=== PATIENT | female | born 2000 | race Caucasian/White ===

== ENCOUNTER 2024-04-17 09:32 | Emergency (ER) | payer OTHER, SELFPAY ==
[2024-04-17 09:40] VITALS: BP 130/77
--- NOTE | 2024-04-17 11:12 | ED.GENMED ---
History of Present Illness
General
Chief Complaint: Abdominal Pain
Source: patient
Time Seen by Provider: 04/17/24 10:38
History of Present Illness
History of Present Illness:
23yoF with a history of anxiety presenting with her mother for evaluation of abdominal pain. Patient started with suprapubic/pelvic pain about 2 days ago. She states it feels like she is being stabbed with a knife. She also reports nausea and has
been having trouble tolerating solids. She has been taking Tylenol without relief. Patient also reports vaginal discharge with a fishy odor. Her IUD expires later this year and she is wondering if her pain is related to her IUD. She denies any
fevers, dysuria, diarrhea. She is a virgin and denies concern for STDs. No previous abdominal surgeries.
Phy Exam
General Physical Exam
General Presentation: well appearing and no apparent distress
General age: appears stated age
General Skin: warm and dry
General Habitus: normal
General Mental: alert
Cardiovascular Exam
Cardiovascular Exam: regular rate/rhythm and no edema
Pulmonary Exam
Pulmonary Exam: lungs clear, no respiratory distress, no crackles and no wheezing
Gastrointestinal Exam
Gastrointestinal Exam: soft, non distended and tender (Moderate generalized tenderness, worse in suprapubic region. No rebound or guarding. )
Palpation: generalized: Moderate tenderness
Skin Exam
Skin Exam: normal color and warm/dry
Psychiatric Exam
Psychiatric Exam: normal mood/affect
Course
Orders/Labs/Results
Orders:
Orders
04/17/24 09:42
US Pelvis W Transvag Combined Urgent
Reason For Exam: pelvic cramping, IUD in place
04/17/24 11:11
0.9% Sodium Chloride 1000 ml [Nss] 1,000 ml IV BOLUS
Ketorolac [Toradol] 15 mg IV NOW STA
Prochlorperazine [Compazine] 5 mg IV NOW STA
Test Result ONCE
04/17/24 11:18
Complete Blood Count/With Diff Urgent
Comprehensive Metabolic Panel Urgent
Lipase Urgent
04/17/24 11:19
HCG, Urine Qualitative Screen Urgent
Date Specimen was Collected: 04/17/24
Time Specimen was Collected: 11:18
Urinalysis Reflex To Culture Urgent
Date Specimen was Collected: 04/17/24
Time Specimen was Collected: 11:18
04/17/24 12:11
CT Abd/pel W Iv And Oral Contr Urgent
Comment:
Reason For Exam: Lower abd pain
Iohexol [Omnipaque] See Protocol PO NOW STA
04/17/24 13:02
Acetaminophen 1000MG/100Ml [Ofirmev] 1,000 mg in 100 ml IV ONCE
Acetaminophen IV Indication:: ED Narcotic Naive Pt-ONCE
Ketorolac [Toradol] 15 mg IV NOW STA
Abnormal Lab Results
04/17/24 04/17/24
11:18 11:19
RBC 3.98 L 10^6/uL
(4.20-5.40)
Hct 35.2 L %
(37.0-47.0)
MCH 32.4 H pg
(27.0-31.0)
MPV 11.5 H fL
(7.4-10.4)
Absolute Lymphs (auto) 1.1 L 10^3/uL
(1.2-3.4)
Neutrophils % 79.3 H %
(42.2-75.2)
Lymphocytes % 14.5 L %
(20.5-51.1)
BUN 6 L mg/dl
(7-17)
Urine Ketones Trace A
(Negative)
04/17/24 11:18
04/17/24 11:18
Vital Signs
Initial and Last Documented VS:
Initial Vital Signs
Temp Pulse Resp BP Pulse Ox
98.3 F 86 18 130/77 98
04/17/24 09:40 04/17/24 09:40 04/17/24 09:40 04/17/24 09:40 04/17/24 09:40
Last Documented Vital Signs
Temp Pulse Resp BP Pulse Ox
98.3 F 76 16 127/75 99
04/17/24 09:40 04/17/24 15:26 04/17/24 15:26 04/17/24 15:26 04/17/24 15:26
MDM/Problems Addressed
Differential Diagnosis Includes:
23yoF here with lower abd/pelvic pain x 2 days. +Nausea and vomiting. Also having vaginal discharge. No urinary symptoms. Patient worried about her IUD. Patient is afebrile and hemodynamically stable. She is well-appearing in no acute distress.
No signs of peritonitis on abdominal exam. Differential diagnosis includes but is not limited to: UTI, PID, ovarian cyst, ovarian torsion, appendicitis, nonspecific abdominal pain
Initial ED plan: Check abdominal labs, UA, hCG, and pelvic ultrasound. IV Compazine, Toradol, and fluid bolus for symptoms.
*Critical Care Note
Total Time (30-74mins, 75-104mins- exclusive of procedures): Not Applicable
Update Note
Update Note:
Labs overall unremarkable including normal white count, renal function, LFTs. UA bland without signs of infection. Urine hCG is negative. Pelvic ultrasound is negative for acute findings. IUD is in appropriate position. No obvious source of
pain identified and CT abdomen was added. CT ultimately negative for acute findings and a normal appendix was visualized. Pelvic exam performed. There is mild vaginal discharge but cervix appears normal. No cervical motion tenderness present to
suggest PID. Patient adamantly denies concern for STDs and states she is a virgin. Unclear etiology of pain. Advised close f/u with PCP and OBGYN. ED return precautions discussed. She was discharged in stable condition.
ED Attending Note
-
Portions of this chart may have been created with voice recognition software.� Occasional wrong word or��sound alike� substitutions may have occurred due to the inherent limitations of voice recognition software.
Discharge Plan
Departure
Patient Disposition: Home (Routine Discharge)
Date of Disposition: 04/17/24
Time of Disposition: 15:18
Patient with high blood pressure during this ER visit?: No
Discharge Problem:
Lower abdominal pain
Instructions: Abdominal Pain
Referrals:
Jessenia Rizvi, DO [Active] -
UNKNOWN - PT DOES,NOT KNOW [Family Provider] -
Stand Alone Forms: Return to Work
Activity Restrictions/Additional Instructions:
Please follow-up with your family doctor and OBGYN. Return to the ER with any new or worsening symptoms.
Interventions
Interventions:
*Risk Screen - Suicide Last Done: 04/17/24 11:11
*General Assessment Last Done: 04/17/24 11:11
*Neglect/Abuse Screening Last Done: 04/17/24 11:11
ED- Fall Risk Assessment Last Done: 04/17/24 14:31
*ED COVID-19 Vaccine History Last Done: 04/17/24 11:11
*Nursing Disposition Last Done: 04/17/24 15:26
QP-[id number] Assessment Last Done: 04/17/24 10:57
Discharge Date and Time
Discharge Date/Time: 04/17/24 15:28
Print Language: AFGHAN
[2024-04-17] MEDS: NSS 1000 IV (11:20)
[2024-04-17 11:22] VITALS: BP 130/82
[2024-04-17] MEDS: TORADOL 15 MG IV ×2 (11:28→13:06)
[2024-04-17] MEDS: COMPAZINE 5 MG IV (11:28)
[2024-04-17 11:43] LABS: % Basophils 0.5 % (0-2); % Immature Granulocytes 0.4 % (0-0.5); % Lymphocytes 14.5 % (20.5-51.1); % Monocytes 5.3 % (1.7-9.3); % Neutrophils 79.3 % (42.2-75.2); Absolute Lymphocytes 1.1 10^3/uL (1.2-3.4); Absolute Monocytes 0.4 10^3/uL (0.1-0.6); Absolute Neutrophils 5.8 10^3/uL (1.4-6.5); Hematocrit 35.2 % (37.0-47.0); Hemoglobin 12.9 g/dL (12.0-16.0); Mean Corp Hgb Conc. 36.6 g/dL (33.0-37.0); Mean Corpuscular Hgb 32.4 pg (27.0-31.0); Mean Corpuscular Volume 88.4 fL (81.0-99.0); Mean Platelet Volume 11.5 fL (7.4-10.4); Nucleated Red Blood Cells % 0 %; Platelet Count 212 10^3/uL (130-400); Red Blood Cell Count 3.98 10^6/uL (4.20-5.40); Red Cell Dist. Width 11.8 % (11.5-14.5); White Blood Cell Count 7.3 10^3/uL (4.8-10.8)
[2024-04-17 11:44] LABS: HCG, Urine Qualitative Screen Negative
[2024-04-17 11:49] LABS: ALT (SGPT) 13 U/L (0-35); AST (SGOT) 21 U/L (14-36); Albumin 4.9 g/dl (3.5-5.0); Alkaline Phosphatase 48 U/L (38-126); Blood Urea Nitrogen 6 mg/dl (7-17); Calcium 9.6 mg/dl (8.4-10.2); Carbon Dioxide 22 mmol/L (22-30); Chloride 104 mmol/L (98-107); Glucose 95 mg/dl (70-99); Lipase 176 U/L (23-300); Potassium 4.2 mmol/L (3.5-5.1); Sodium 136 mmol/L (135-145); Total Protein 7.2 g/dl (6.3-8.2); eGFR > 60.00
[2024-04-17] MEDS: OMNIPAQUE 50 ML PO (12:22)
[2024-04-17] MEDS: OFIRMEV 100 IV (13:06)
[2024-04-17 13:09] LABS: Urine Albumin Negative (Neg - Trace); Urine Bilirubin Negative (Negative); Urine Character Clear (Clear); Urine Color Straw; Urine Glucose Negative (Negative); Urine Ketone Trace (Negative); Urine Leukocyte Negative (Negative); Urine Nitrite Negative (Negative); Urine Occult Blood Negative (Negative); Urine Urobilinogen Negative (Neg - 1+); Urine pH 6.5 (5.0-9.0)
[2024-04-17 13:59] VITALS: BP 140/74
[2024-04-17 15:26] VITALS: BP 127/75
== END 2024-04-17 15:28 | disposition home or self-care (01) ==
LOC: EMR 09:32
PROVIDERS: Physician Assistant; EMERGENCY PHYSICIAN Emergency Medicine
DX: R10.30 Lower abdominal pain, unspecified (principal); R11.2 Nausea with vomiting, unspecified; N89.8 Other specified noninflammatory disorders of vagina; R10.2 Pelvic and perineal pain; Z97.5 Presence of (intrauterine) contraceptive device
CPT/HCPCS: 99285; 96375 ×2; 96361; 96374; 96376; 74177; 76830; 76856; 80053; 81003; 81025; 83690; 85025; Q9967